=== PATIENT | male | born 1960 | race Caucasian/White ===

== ENCOUNTER 2017-11-03 08:18 | Outpatient (CLI) | payer OTHER, MEDICAID ==
[~2017-11-03] VITALS: Ht 177.8 cm; Wt 112.3 kg
--- NOTE | ~2017-11-03 | OP ---
PATIENT NAME: NEELAM KRISHNAMURTHY MEDICAL RECORD: [id number] :64 LOCATION:D.CAT ADMISSION DATE: SURGEON: IBAN MENDENHALL MD DATE OF OPERATION: 11/03/2017 PROCEDURES: 1. PTCA stent LAD. 2. Intravascular ultrasound of the LAD. 3. Left heart catheterization. 4. Selective coronary angiography. 5. Left ventriculogram. INDICATION: Angina and coronary artery disease. PROCEDURE IN DETAIL: After informed consent was obtained and after a detailed description of the risks, benefits as well as alternative therapies, the patient elected to proceed with angiogram and angioplasty. The right radial area was prepped and draped in normal sterile fashion. Right radial artery was cannulated via modified Seldinger technique with placement of 6-Dominican sheath. All catheters exchanged through this sheath. FINDINGS: The left ventriculogram was performed in standard 30-degree ANTONIO view, reveals good cardiac wall motion throughout all segments. Overall ejection fraction estimated 60%. SELECTIVE CORONARY ANGIOGRAPHY: 1. Left main is with no significant angiographic disease. 2. Left anterior descending has 65% to 70% stenosis on the proximal vessel confirmed by intravascular ultrasound. 3. Left circumflex has moderate irregularities, but no flow-limiting stenosis. 4. Right coronary has moderate irregularities, but no flow-limiting stenosis. PTCA STENT OF THE LAD: The stent used was a 4.0 x 18 mm Integrity. Result was 0% residual stenosis. OVERALL IMPRESSION: Successful PTCA stent of the LAD going from 70% initial stenosis to 0% residual. TRANSINT:[id number] Voice Confirmation ID: [id number] DOCUMENT ID: [id number] IBAN MENDENHALL MD at 2002 CC: [id number] DICTATION DATE: 11/03/17 1326 ELASTIC YARN TWISTER HELPER: 11/03/17 1343 DEP CLI 11/03/17 [place] [address]
--- NOTE | ~2017-11-03 | HEMODYNAMI ---
PATIENT:NEELAM KRISHNAMURTHY MEDICAL RECORD: [id number] : 64 LOCATION:D.CAT ADMISSION DATE: 11/03/17 Generatedon:11/03/201713:28 Patient name: NEELAM KRISHNAMURTHY Patient #: [id number] SSN: D OB: 1960 Date of study: 11/03/2017 Page: Of Hemodynamic Procedure Report Patient Data Patient Demographics Procedure consent was obtained First Name: NEELAM Gender: Male Last Name: YESSY : 1960 Middle Initial: CLAY Age: 56 year(s) Patient #: [id number] Race: Additional ID: [id number] Contact details Address: [address] [place] [address] State: [place] City: [facility] Zip code: [address] Past Medical History Allergies Allergen Reaction Date Comments Reported Other 11/03/2017 amlodipine,codeine,NSAIDS allergy Admission Admission Data Admission Date: 11/03/2017 Admission Time: 8:18 Lab Results Lab Result Date: 11/03/2017 Lab Result Time: 9:40 Biochemistry Name Units Result Min Max BUN mg/dl 14 --(--*-)-- 7 18 Creatinine mg/dl 0.9 --(-*--)-- 0.6 1.3 CBC Name Units Result Min Max Hematocrit % 40.4 -*(----)-- 42 54 Hemoglobin g/dl 13.3 -*(----)-- 13.5 17.5 Procedure Procedure Types Cath Procedure Diagnostic Procedure LHC LH w/Coronaries FFR/IVUS Intra-Coronary IVUS Initial PCI Procedure Coronary Stent Coronary Stent Initial Procedure Description Procedure Date Procedure Date: 11/03/2017 Procedure Start Time: 13:09 Procedure End Time: 13:26 Procedure Staff Name Function Danyel Henriquez MD Performing Physician Ankit Gabriel RT Monitor Allyn Valentine RT Scrub Charity Chance RN Nurse Procedure Data Cath Procedure Fluoroscopy Diagnostic fluoroscopy Total fluoroscopy Time: 4.9 time: 4.9 min min Diagnostic fluoroscopy Total fluoroscopy dose: 949 dose: 949 mGy mGy Contrast Material Contrast Material Type Amount (ml) Isovue 370 112 Entry Location Entry Primary Successful Side Size Upsize Upsize Entry Closure Jiménez ccessful Closure Location (Fr) 1 (Fr) 2 (Fr) Remarks Device Remarks Radial Right 6 Fr Mechanical artery Short Compression Estimated blood loss: 10 ml Diagnostic catheters Device Type Used For End Catheter Placement DIAGNOSTIC Oran 110cm 5 Procedure Fr catheter ([id number]) Procedure Complications No complications Procedure Medications Medication Administration Route Dosage Oxygen NC 2 l/min Lidocaine 2% added to field 20 Heparin Flush Bag added to field 2 bags (1000units/500ml NS) 0.9% NaCl I.V. 100 ml/hr Radial Cocktail I.A. 1 syringe (Verapomil 2mg/Nitro 400mcg/Heparin 1500units) Versed I.V. 2 mg Fentanyl I.V. 100 mcg Heparin Bolus I.V. 4000 units Versed I.V. 1 mg Fentanyl I.V. 50 mcg Versed I.V. 1 mg Fentanyl I.V. 50 mcg Hemodynamics Rest HGB: 13.3 (g/dl) Heart Rate: 80 (bpm) Pressure Samples Time Site Value (mmHg) Purpose Heart Use Rate(bpm) 13:11 LV 102/-27,18 Snapshot 84 Snapshots Pre Cath Intra NCS Post Cath Vital Signs Time Heart Resp SPO2 etCO2 NIBP (mmHg) Rhythm Pain Sedation Rate (ipm) (%) (mmHg) Status Level (bpm) 13:01:41 79 16 93 33.6 167/126(151) NSR 0 (11) 10(A) , No pain 13:06:09 84 18 94 38.9 182/116(149) NSR 0 (11) 10(A) , No pain 13:10:38 73 19 94 43.3 172/112(154) NSR 0 (11) 10(A) , No pain 13:15:00 85 13 94 30 161/110(127) NSR 0 (11) 10(A) , No pain 13:19:24 83 14 93 30.7 163/90(140) NSR 0 (11) 9(A) , No pain 13:23:46 83 20 96 38.1 143/96(123) NSR 0 (11) 10(A) , No pain Medications Time Medication Route Dose Verified Delivered Reason Note s Effectiveness by by 13:06:24 Oxygen NC 2 l/min Danyel Nash used for Martinez Chance RN procedure 13:06:36 Lidocaine 2% added 20ml Danyel Montaño for local to vial Martinez Henriquez MD anesthetic field 13:06:43 Heparin Flush added 2 bags Danyel Montaño used for Bag to Martinez Henriquez MD procedure (1000units/500ml field NS) 13:06:53 0.9% NaCl I.V. 100 Danyel Nash Per physician ml/hr Martinez Chance RN 13:09:37 Versed I.V. 2 mg Danyel Nash for sedation Martinez Chance RN 13:09:43 Fentanyl I.V. 100 mcg Danyel Nash for sedation Martinez Chance RN 13:10:27 Radial Cocktail I.A. 1 Danyel Montaño for (Verapomil syringe Martinez Henriquez MD vasodilation 2mg/Nitro 400mcg/Heparin 1500units) 13:13:03 Fentanyl I.V. 50 mcg Danyel aNsh for sedation Martinez Chance RN 13:13:58 Versed I.V. 1 mg Danyel Nash for sedation Martinez Chance RN 13:18:49 Heparin Bolus I.V. 4000 Danyel Nash for veri fied units Martinez Chance RN anticoagulation with dr henriquez 13:20:03 Versed I.V. 1 mg Danyel Tsaiie for sedation Martinez Chance RN 13:20:10 Fentanyl I.V. 50 mcg Danyel Nash for sedation Martinez Chance RN Procedure Log Time Note 12:28:32 Informed consent obtained and on chart 12::45 Diagnostic Cath Status : Elective 12:29:12 Time tracking: Regular hours (M-F 7:00 - 5:00) 12:29:16 Plan of Care:Hemodynamics will remain stable., Cardiac rhythm will remain stable., Comfort level will be maintained., Respiratory function will remain adequate., Patient/ family verbilizes understanding of procedure., Procedure tolerated without complication., Recovers from procedure without complications.. 12:34:33 Charity Chance RN sent for patient. Start room use. 12:45:45 Patient received from Pre/Post Procedure Room to CCL 2 Alert and oriented. Tansferred to table in Supine position. 12:45:45 Warm blankets applied, and miguel hugger turned on for patient comfort. 12:45:48 Correct patient and procedure confirmed by team. 12:45:49 ECG and BP/O2 sat monitors applied to patient. 12:46:06 H&P Date Dictated: 10/17/2017 Within 30 days and on chart., H&P Addendum completed by physician on day of procedure. (MUST COMPLETE FOR ALL OUTPATIENTS). 12:46:07 Pre-procedure instructions explained to patient. 12:46:07 Pre-op teaching completed and patient verbalized understanding. 12:46:08 Family in waiting room. 12:46:09 Patient NPO since Midnight. 12:46:49 Patient allergic to Other allergyamlodipine,codeine,NSAIDS 13:00:19 Vital chart was started 13:00:20 Baseline sample Acquired. 13:00:25 Rhythm: sinus rhythm 13:00:33 Full Disclosure recording started 13:00:35 Is the patient allergic to Iodine/contrast media? No. 13:00:36 Is patient on blood thinner?Yes 13:00:38 ACC The patient was administered the following blood thiners within the last 24 hours: ACCPlavix 13:00:40 Patient diabetic? Yes. 13:00:41 If diabetic: On Metformin? Yes 13:00:43 If on Metformin: Last Dose? 11/02/2017 13:00:45 Previous problem with sedation/anesthesia? No ? 13:00:46 Snore? Yes 13:00:56 Sleep apnea? Yes 13:00:57 Deviated septum? No 13:00:58 Opens mouth fully? Yes 13:00:59 Sticks out tongue? Yes 13:01:00 Airway obstruction? No ? 13:01:02 Dentures? No ? 13:01:05 Pre procedure: right dorsailis pedis pulse 2+ Normal; easily identifiable; not easily obliterated 13:01:07 Modified Buster's test Ulnar < 7 seconds 13:01:08 Patient pain scale 0/10 ?. 13:01:13 IV patent on arrival in left hand with 0.9% NaCl at [facility]. 13:02:51 Lab Result : Creatinine 0.9 mg/dl 13:02:51 Lab Result : BUN 14 mg/dl 13:02:51 Lab Result : Hemoglobin 13.3 g/dl 13:02:51 Lab Result : Hematocrit 40.4 % 13:02:54 Lab results completed and on chart. 13:02:56 Right Radial & Right Groin area was prepped with chlora-prep and draped in sterile fashion 13:02:57 Alarms reviewed by R. N. 13:03:13 Sharps counted by scrub and verified by R.N. 13:03:16 Use device set Radial Dx or PCI 13:03:17 ACIST Syringe (50437) opened to sterile field. 13:03:18 Medline Cath Pack ([id number]) opened to sterile field. 13:03:19 ACIST Hand Control (66910) opened to sterile field. 13:03:19 ACIST Manifold (57453) opened to sterile field. 13:03:20 Tegaderm 4 x 4 (1626W) opened to sterile field. 13:03:22 Bag Decanter (2002S) opened to sterile field. 13:03:25 SHEATH 6Fr Prelude Radial ([id number]) opened to sterile field. 13:03:29 DIAGNOSTIC WIRE .035 260cm J wire (468419) opened to sterile field. 13:06:24 Oxygen 2 l/min NC was administered by Charity Chance RN; used for procedure; 13:06:36 Lidocaine 2% 20ml vial added to field was administered by Danyel Henriquez MD; for local anesthetic; 13:06:43 Heparin Flush Bag (1000units/500ml NS) 2 bags added to field was administered by Danyel Henriquez MD; used for procedure; 13:06:53 0.9% NaCl 100 ml/hr I.V. was administered by Charity Chance RN; Per physician; 13:08:07 Physician arrived 13:08:07 --------ALL STOP TIME OUT------ 13:08:08 Final Timeout: patient, procedure, and site verified with staff and physician. All members of the team are in agreement. 13:08:09 Right Radial & Right Groin site verified by team. 13:08:11 Physical assessment completed. ASA score P 2 - A patient with mild systemic disease as per Danyel Henriquez MD. 13:08:14 Sedation plan: IV Moderate Sedation Medication:Versed, Fentanyl 13:08:19 Zero performed for pressure channel P1 13:08:23 Zero performed for pressure channel P1 13:09:30 Procedure started. 13:09:35 Local anesthetic to right radial artery with Lidocaine 2% by Danyel Henriquez MD.INITIAL ACCESS ONLY 13:09:37 Versed 2 mg I.V. was administered by Charity Chance RN; for sedation; 13:09:41 A 6 Fr Short sheath was inserted into the Right Radial artery 13:09:43 Fentanyl 100 mcg I.V. was administered by Charity Chance RN; for sedation; 13:09:47 A DIAGNOSTIC Oran 110cm 5 Fr catheter (101944) was advanced over the wire and used for Procedure. 13:10:27 Radial Cocktail (Verapomil 2mg/Nitro 400mcg/Heparin 1500units) 1 syringe I.A. was administered by Danyel Henriquez MD; for vasodilation; 13:11:16 LV hemodynamics recorded. 13:11:28 LV gram done using ANTONIO 13:11:30 Injector settings: Ml/sec: 5, Volume: 15, 13:11:34 EF : 60 % 13:11:37 LCA angiography performed. 13:12:38 RCA angiography performed. 13:12:59 Catheter removed. 13:13:03 Fentanyl 50 mcg I.V. was administered by Charity Chance RN; for sedation; 13:13:05 GUIDE 6FR XBLAD 3.5 catheter ([id number]) opened to sterile field. 13:13:16 CHOICE PT Extra Support 182cm wire ([id number]) opened to sterile field. 13:13:16 INFLATOR Merit BasixCompak (AM3947) opened to sterile field. 13:13:58 Versed 1 mg I.V. was administered by Charity Chance RN; for sedation; 13:14:09 6 Fr XBLAD 3.5 guide catheter was inserted over the wire 13:14:18 [place] Eagley[place] IVUS Catheter (85722Z) opened to sterile field. 13:14:53 CHOICE PT wire advanced. 13:14:59 Wire advanced across lesion. 13:15:43 IVUS catheter advanced over wire. 13:18:49 Heparin Bolus 4000 units I.V. was administered by Charity Chance RN; for anticoagulation; verified with dr henriquez 13:18:55 IVUS pass to LAD lesion performed. 13:18:56 IVUS catheter removed over wire. 13:19:00 Wire removed. 13:19:02 Guide catheter removed. 13:19:14 6 Fr XBLAD 3.5 guide catheter was inserted over the wire 13:19:19 CHOICE PT ES wire advanced. 13:19:20 Wire advanced across lesion. 13:20:03 Versed 1 mg I.V. was administered by Charity Chance RN; for sedation; 13:20:10 Fentanyl 50 mcg I.V. was administered by Charity Chance RN; for sedation; 13:21:22 Place stent Inflation Number: 1 A INTEGRITY 4.0 x 18 stent ([id number]) was prepped and advanced across the Prox LAD. The stent was deployed at 13 ALBERT for 0:10 (min:sec). 13:21:41 Stent catheter was removed intact over wire. 13:21:42 Wire removed. 13:21:43 Guide catheter removed. 13:23:24 TR BAND Large ([id number]) opened to sterile field. 13:23:33 Sheath removed intact; hemostasis achieved with Mechanical Compression to the Right Radial artery. 13:23:34 Procedure ended.(Physican Out) 13:24:50 Fluoroscopy time 04.90 minutes. 13:24:54 Fluoroscopy dose: 949 mGy 13:24:54 Flurop Dose total: 949 13:24:58 Contrast amount:Isovue 370 112ml. 13:24:59 Sharps counted by scrub and verified by R.N. 13:25:01 TR band inflated with 7cc of air. 13:25:02 Insertion/operative site no bleeding no hematoma. 13:25:03 Post Procedure Pulses reassessed and unchanged 13:25:06 Post-procedure physical assessment completed. ASA score P 2 - A patient with mild systemic disease as per Danyel Henriquez MD. 13:25:08 Post procedure rhythm: unchanged. 13:25:10 Estimated blood loss: 10 ml 13:25:11 Post procedure instruction explained to patient.Patient verbalizes understanding. 13:25:12 Patient needs reinforcement of post procedure teaching. 13:25:21 Procedure type changed to Cath procedure, Diagnostic procedure, LHC, LH w/Coronaries, FFR/IVUS, Intra-Coronary IVUS Initial, PCI procedure, Coronary Stent, Coronary Stent Initial 13:26:01 Procedure and supply charges have been captured, reviewed, submitted and are correct. 13:26:03 Procedure Complication : No complications 13:26:05 Vital chart was stopped 13:26:05 See physician's report for complete and final results. 13:26:06 Report given to Pre/Post Procedure Room. 13:26:08 Patient transfered to Pre/Post Procedure Room with Stretcher. 13:26:10 Procedure ended. 13:26:10 Full Disclosure recording stopped 13:26:13 End room use (Document Last) Intervention Summary Intervention Notes Time ActionType Lesion and Equipment Action# Pressure Duration Attributes Used 13:21:22 Place stent Prox LAD INTEGRITY 1 13 00:10 4.0 x 18 stent ([id number]) Device Usage Item Name Manufacture Quantity Catalog Number Hospital Part Current M inimal Lot# / Charge Number Stock Stock Serial# Code ACIST Syringe Acist 1 11749 636570 069362 329494 2 0 (32468) Medical Systems Inc Medline Cath Cardinal 1 [id number] 042035 22841 188020 5 Pack Health ([id number]) ACIST Hand Acist 1 29164 408878 805850 113990 5 Control (10909) Medical Systems Inc ACIST Manifold Acist 1 26810 769271 678250 361700 5 (65794) Medical Systems Inc Tegaderm 4 x 4 3M 1 1626W 276035 382027 928694 5 (1626W) Bag Decanter Microtek 1 2002S 409096 96381 822127 5 (2002S) Medical Inc. SHEATH 6Fr Merit 1 [id number] 399828 691282 464476 5 Prelude Radial Medical ([id number]) DIAGNOSTIC WIRE St Eulalio 1 170540 695638 123828 629702 3 0 .035 260cm J wire (683579) DIAGNOSTIC Terumo 1 23-6581 771256 022937 040955 5 Oran 110cm 5 Fr catheter (673187) GUIDE 6FR XBLAD Cardinal 1 [id number] 026837 516274 293852 1 0 3.5 catheter Health ([id number]) CHOICE PT Extra Bison 1 [id number] 266053 347090 556217 5 Support 182cm Scientific wire ([id number]) INFLATOR Merit Merit 1 DZ0366 437976 572004 109864 1 5 Slice (JY5743) [place] 1 73872C 321741 917446 053525 8 [place] IVUS Catheter (32790B) INTEGRITY 4.0 x Medtronic 1 [id number] 648927 858763 270734 5 [id number] 18 stent ([id number]) TR BAND Large Terumo 1 [id number] 159171 440546 362763 4 0 ([id number]) Signature Audit [place] Stage Time Signature Unsigned Intra-Procedure 11/03/2017 Ankit Gabriel 1:28:49 PM RT(R) Signatures Monitor : Ankit Gabriel RT Signature : Date : Time : [id number] [place] [address]
[2017-11-03] MEDS ORDERED: PLAVIX75 MG PO (09:20)
[2017-11-03] MEDS ORDERED: GLUCOPHAGE1000 MG PO (09:20)
[2017-11-03] MEDS ORDERED: OMEPRAZOLE40 MG PO (09:21)
[2017-11-03] MEDS ORDERED: GLIMEPIRIDE1 MG PO (09:21)
[2017-11-03] MEDS ORDERED: TOPROL XL50 MG PO (09:21)
[2017-11-03] MEDS ORDERED: FELDENE 10 MG C10 MG PO (09:21)
[2017-11-03] MEDS ORDERED: IMITREX100 MG PO (09:22)
[2017-11-03] MEDS ORDERED: SKELAXIN800 MG PO (09:23)
[2017-11-03] MEDS ORDERED: AMITRIPTYLINE150 MG PO (09:23)
[2017-11-03] MEDS ORDERED: LIPITOR10 MG PO (09:24)
[2017-11-03] MEDS ORDERED: ALDACTONE25 MG PO (09:24)
[2017-11-03] MEDS ORDERED: ULTRAM50 MG PO (09:25)
[2017-11-03 09:36] VITALS: BP 146/95; Ht 177.8 cm; Wt 112.3 kg
[2017-11-03 09:57] LABS: BASOPHILS 0.3 % (0-2); EOSINOPHILS 2.9 % (0-7); HEMATOCRIT 40.4 % (42.0-54.0); HEMOGLOBIN 13.3 g/dL (13.5-17.5); IMMATURE GRANULOCYTES 0.6 % (0-5); LYMPHOCYTES 23.4 % (15-50); MCH 30.1 pg (26.0-34.0); MCHC 32.9 g/dL (31.0-37.0); MCV 91.4 fL (80.0-100.0); MEAN PLATELET VOLUME 9.9 fL (7.4-10.4); MONOCYTES 9.3 % (2-11); NEUTROPHILS 63.5 % (40-80); PLATELET COUNT 232 10x3/uL (130-400); RBC 4.42 10x6/uL (4.20-6.10); RDW 13.1 % (11.5-14.5); WBC 9.7 10x3/uL (4.8-10.8)
[2017-11-03 09:58] LABS: CALC OSMOLALITY 280 mosm/kg (275-300); CALCIUM 8.4 mg/dL (8.5-10.1); CARBON DIOXIDE 27.1 mmol/L (21.0-32.0); CHLORIDE - SERUM 105 mmol/L (98-107); CREATININE - SERUM 0.9 mg/dL (0.6-1.3); GLUCOSE 116 mg/dL (74-106); POTASSIUM - SERUM 4.3 mmol/L (3.5-5.1); SODIUM 140 mmol/L (136-145); UREA NITROGEN 14 mg/dL (7-18); eGFR NON AFRICAN AMERICAN > 90 mL/min (90-120)
== END 2017-11-03 17:36 | disposition home or self-care (01) ==
LOC: D.CATH 08:18
PROVIDERS: Internal Medicine Interventional Cardiology
DX: I25.119 Atherosclerotic heart disease of native coronary artery with unspecified angina pectoris (principal); R00.2 Palpitations; R06.09 Other forms of dyspnea; Z01.812 Encounter for preprocedural laboratory examination